=== PATIENT | female | born 1960 | race African-American/Black ===

== ENCOUNTER 2022-06-22 15:15 | Outpatient (CLI) | payer MEDICARE, BC | END 2022-06-22 15:16 | disposition home or self-care (01) | LOC: CSHLAB 15:15 | PROVIDERS: ATTEND Obstetrics & Gynecology | DX: Z01.818 Encounter for other preprocedural examination (principal); N84.0 Polyp of corpus uteri | CPT/HCPCS: 85027; 86850; 86900; 86901; 93005; 93010 ==

== ENCOUNTER 2022-06-24 09:59 | Day surgery (SDC) | payer MEDICARE, BC ==
[2022-06-22 13:53] VITALS: BMI 36.8
[2022-06-22 16:55] LABS: Mean Corpuscular HGB CONC 32.7 g/dL (32.0-36.0); Mean Corpuscular Hemoglobin 29.7 pg (27.0-33.0); Mean Corpuscular Volume 90.6 fl (81.6-98.3); Mean Platelet Volume 10.9 fl (7.4-10.4); Platelet Count 278 10x3/uL (150-450); RBC Distribution Width 13.4 % (11.5-14.5); Red Blood Cell (RBC) Count 4.38 10x6/uL (3.90-5.03); White Blood Cell (WBC) Count 7.7 10x3/uL (3.5-10.5)
[2022-06-24] MEDS ORDERED: Midazolam HCl 2 mg/2 ml Vial ONE (12:47)
[2022-06-24] MEDS ORDERED: PROPOFOL 20 ML ONE (13:10)
[2022-06-24] MEDS ORDERED: Fentanyl 100 MCG/2 ML VIAL ONE (13:10)
[2022-06-24] MEDS ORDERED: Dexamethasone 4 mg/ml Vial ONE (13:11)
[2022-06-24] MEDS ORDERED: Ondansetron PF 4 MG/2 ML Vial ONE (13:11)
[2022-06-24] MEDS ORDERED: Lidocaine 1% PF 5 ML VIAL ONE (13:11)
[2022-06-24] MEDS ORDERED: CEFAZOLIN 2 GM VIAL ONE (13:20)
[2022-06-24] MEDS ORDERED: Labetalol HCl 100 MG/20 ML VIAL ONE (14:08)
== END 2022-06-24 15:05 | disposition home or self-care (01) ==
LOC: CSHSDC 09:59
PROVIDERS: ATTEND Obstetrics & Gynecology
PROC: 0UB98ZZ Excision of Uterus, Via Natural or Artificial Opening Endoscopic (ICD-10-PCS; principal; 2022-06-24)
DX: N84.0 Polyp of corpus uteri (principal); N95.0 Postmenopausal bleeding; E66.01 Morbid (severe) obesity due to excess calories; E78.5 Hyperlipidemia, unspecified; I10 Essential (primary) hypertension; F41.9 Anxiety disorder, unspecified; F32.A Depression, unspecified; G43.909 Migraine, unspecified, not intractable, without status migrainosus; C50.919 Malignant neoplasm of unspecified site of unspecified female breast; Z68.35 Body mass index [BMI] 35.0-35.9, adult; Z88.1 Allergy status to other antibiotic agents; Z88.8 Allergy status to other drugs, medicaments and biological substances; Z79.899 Other long term (current) drug therapy; Z01.818 Encounter for other preprocedural examination
CPT/HCPCS: 85027; 86850; 86900; 86901; 88305; 93005; 93010; J1100; J2250; J2405; J2704; J3010